=== PATIENT | male | born 1990 | race Caucasian/White ===

== ENCOUNTER 2022-01-16 18:47 | Emergency (ER) | payer MEDICARE, MEDICAID ==
[~2022-01-16] VITALS: Ht 170.2 cm; Wt 100.0 kg
[2022-01-16] MEDS ORDERED: PROAIR HFA0.09 MG/AC IH (20:05)
[2022-01-16] MEDS ORDERED: FAMOTIDINE20 MG PO (20:05)
[2022-01-16] MEDS ORDERED: PROZAC20 M1 PO (20:05)
[2022-01-16] MEDS ORDERED: AUGMENTIN 500-1 EACH PO (20:06)
[2022-01-16] MEDS ORDERED: ZESTRIL2.5 M1 PO (20:06)
[2022-01-16] MEDS ORDERED: AMOXICILLIN AND1 TA2 PO (20:54)
[2022-01-16 21:20] VITALS: BP 141/87
== END 2022-01-16 21:20 | disposition home or self-care (01) ==
LOC: ED 18:47
DX: S68.117A Complete traumatic metacarpophalangeal amputation of left little finger, initial encounter (principal); F17.210 Nicotine dependence, cigarettes, uncomplicated; Z88.1 Allergy status to other antibiotic agents; Z28.310 Unvaccinated for COVID-19; Y04.1XXA Assault by human bite, initial encounter

== ENCOUNTER → 2022-01-18 | Outpatient (CLI) | payer MEDICARE, MEDICAID ==
[~2022-01-18] MED LIST: AMOXICILLIN AND1 TA2 PO; AUGMENTIN 500-1 EACH PO; FAMOTIDINE20 MG PO; PROAIR HFA0.09 MG/AC IH; PROZAC20 M1 PO; ZESTRIL2.5 M1 PO
[2022-01-18 13:05] LABS: BASO # 0.06 K/mm3 (0.02-0.10); EOS # 0.08 K/mm3 (0.04-0.40); EOS % 0.7 % (0.0-4.0); HEMATOCRIT 40.9 % (42.0-52.0); HEMOGLOBIN 14.1 g/dL (13.5-18.0); LYMPH# 3.36 K/mm3 (1.50-4.00); MEAN CELL VOLUME 84 fl (78-100); MEAN CORPUSCULAR HEMOGLOBIN 29 pg (27-31); MEAN CORPUSCULAR HGB CONC 35 g/dL (33-37); MONO # 0.96 K/mm3 (0.20-0.80); NEU # 7.36 K/mm3 (1.40-6.50); PLATELET COUNT 391 K/mm3 (130-400); WHITE BLOOD COUNT 11.8 K/mm3 (4.8-10.8)
[2022-01-18 13:15] LABS: ALBUMIN 4.8 g/dL (3.5-5.0)
[2022-01-18 13:16] LABS: POTASSIUM 3.9 mmol/L (3.5-5.1)
[2022-01-18 13:17] LABS: CALCIUM 10.1 mg/dL (8.3-10.5)
[2022-01-18 13:18] LABS: TOTAL PROTEIN 8.1 g/dL (6.4-8.3)
[2022-01-18 13:20] LABS: TOTAL BILIRUBIN 0.6 mg/dL (0.2-1.2)
[2022-01-18 13:24] LABS: MAGNESIUM 1.98 mg/dL (1.60-2.60)
== END ==
LOC: LAB 12:54
PROVIDERS: Internal Medicine
DX: M54.51 Vertebrogenic low back pain (principal); I10 Essential (primary) hypertension; K90.9 Intestinal malabsorption, unspecified; F43.10 Post-traumatic stress disorder, unspecified; G43.009 Migraine without aura, not intractable, without status migrainosus; L98.499 Non-pressure chronic ulcer of skin of other sites with unspecified severity

== ENCOUNTER → 2022-09-10 | Outpatient (CLI) | payer MEDICARE, MEDICAID ==
[2022-09-10 11:08] LABS: ALBUMIN 4.5 g/dL (3.5-5.0); BASO # 0.03 K/mm3 (0.02-0.10); EOS # 0.06 K/mm3 (0.04-0.40); EOS % 0.8 % (0.0-4.0); HEMATOCRIT 39.4 % (42.0-52.0); HEMOGLOBIN 13.2 g/dL (13.5-18.0); LYMPH# 2.23 K/mm3 (1.50-4.00); MEAN CELL VOLUME 85 fl (78-100); MEAN CORPUSCULAR HEMOGLOBIN 29 pg (27-31); MEAN CORPUSCULAR HGB CONC 34 g/dL (33-37); MEAN PLATELET VOLUME 9.6 fl (7.4-10.4); MONO # 0.52 K/mm3 (0.20-0.80); NEU # 4.68 K/mm3 (1.40-6.50); PLATELET COUNT 303 K/mm3 (130-400); POTASSIUM 3.7 mmol/L (3.5-5.1); RED BLOOD COUNT 4.63 M/mm3 (4.20-5.60); RED CELL DISTRIBUTION WIDTH 13.8 % (11.5-14.5); WHITE BLOOD COUNT 7.5 K/mm3 (4.8-10.8)
[2022-09-10 11:09] LABS: CALCIUM 9.5 mg/dL (8.3-10.5)
[2022-09-10 11:10] LABS: TOTAL PROTEIN 7.2 g/dL (6.4-8.3)
[2022-09-10 11:12] LABS: TOTAL BILIRUBIN 0.4 mg/dL (0.2-1.2)
[2022-09-10 11:17] LABS: MAGNESIUM 1.85 mg/dL (1.60-2.60)
== END ==
LOC: LAB 10:45
PROVIDERS: Internal Medicine
DX: F43.10 Post-traumatic stress disorder, unspecified (principal); K90.9 Intestinal malabsorption, unspecified; E53.8 Deficiency of other specified B group vitamins; K21.00 Gastro-esophageal reflux disease with esophagitis, without bleeding; G43.009 Migraine without aura, not intractable, without status migrainosus; G47.00 Insomnia, unspecified; G25.81 Restless legs syndrome